=== PATIENT | female | born 1950 | race Caucasian/White ===

== ENCOUNTER 2016-06-28 13:06 | Day surgery (SDC) | payer MEDICARE, OTHER ==
[~2016-06-28 13:06] MED LIST: CIPROFLOXACIN HCL 500 MG TABLET PO PRN
[2016-06-28] MEDS ORDERED: LIDOCAINE HCL 10 APPL CARTRIDGE TP ONE (14:15)
[2016-06-28 15:10] LABS: Urine Bilirubin Negative (NEGATIVE); Urine Ketone Negative (NEGATIVE); Urine Nitrite Negative (NEGATIVE); Urine Protein Negative (NEGATIVE); Urine Specific Gravity 1.015 SP.GR. (1.005-1.010); Urine Urobilinogen Normal (NORMAL)
[2016-06-28 15:20] LABS: Urine Appearance Clear; Urine Bacteria None Seen; Urine Blood 10 /ul (NEGATIVE); Urine Color Yellow; Urine RBC 0-5 /hpf (0-5); Urine WBC None Seen /hpf (0-5)
[2016-06-28 16:57] VITALS: BP 108/62
== END 2016-06-28 13:07 | disposition home or self-care (01) ==
LOC: AMB 13:06
PROVIDERS: ATTEND Urology
PROC: 3E1K88X Irrigation of Genitourinary Tract using Irrigating Substance, Via Natural or Artificial Opening Endoscopic, Diagnostic (ICD-10-PCS; 2016-06-28)
PROC: 0TJB8ZZ Inspection of Bladder, Via Natural or Artificial Opening Endoscopic (ICD-10-PCS; principal; 2016-06-28 13:50)
DX: R31.9 Hematuria, unspecified (principal); R31.29 Other microscopic hematuria; Z68.1 Body mass index [BMI] 19.9 or less, adult

== ENCOUNTER 2016-08-15 10:50 | Emergency (ER) | payer MEDICARE, OTHER ==
[2016-08-15 11:03] LABS: Hematocrit 47.3 % (37.0-47.0); Hemoglobin 14.9 gm/dL (12.5-16.0); Mean Cell Volume 86.6 fl (78-100); Mean Corpuscular Hemoglobin 27.3 pg (27-31); Mean Corpuscular Hgb Conc 31.5 g/dl (32-36); Mean Platelet Volume 8.9 fl (6.0-9.5); Neutrophil # 4.4 K/mm3 (1.3-6.0); Neutrophil % 62.5 % (42-75.0); Platelet Count 378 K/mm3 (150-450); Red Blood Count 5.46 M/mm3 (4.2-5.4); Red Cell Distribution Width 13.3 % (11.5-14.0); White Blood Count 7.1 K/mm3 (4.0-10.5)
[2016-08-15 11:06] LABS: Prothrombin Time (Patient) 12.6 Seconds (9.4-11.4)
[2016-08-15 11:07] LABS: INR 1.21 INR (0.90-1.10)
--- NOTE | 2016-08-15 11:17 | ERNOTE ---
Neuro HPI ER Record Date of Service: 08/15/16 Presenting Symptoms: weakness, numbness, facial droop, difficulty walking Time Seen by Provider: 08/15/16 10:54 Source: patient Exam Limitations: no limitations Immunizations: IMMUNIZATION HX Immunizations Up to Date Yes History of Influenza Vaccine Yes Hx Pneumococcal Vaccination No Allergies/Adverse Reactions: Allergies Allergy/AdvReac Type Severity Reaction Status Date / Time atorvastatin calcium Allergy Severe Other Verified 05/26/16 14:58 [From Lipitor] ceftriaxone sodium Allergy Mild rash Verified 05/26/16 14:58 [From Rocephin] latex Allergy Mild Hives Verified 06/28/16 13:40 hydrocodone bitartrate Allergy Unknown Verified 06/26/16 14:51 [From Vicodin] simvastatin [From Zocor] AdvReac Severe Nausea Verified 05/26/16 14:58 Home Medications: HOME MEDICATIONS Aspirin [Aspirin EC] 81 mg PO DAILY 08/22/15 [Last Taken Unknown] Tobramycin/0.25 Normal Saline [Andrea 300MG/5ML Solution For Inhalation] 5 ml IH Q60D 08/22/15 [Last Taken Unknown] L.acidoph & Paracasei,B.lactis [Probiotic] 1 each PO DAILY #30 capsule 05/26/16 [Last Taken Unknown] Albuterol Sulfate [Proair Hfa] 1 - 2 puff IH Q4H PRN 06/26/16 [Last Taken Unknown] Azithromycin [Zithromax] 500 mg PO MOWEFR 06/26/16 [Last Taken Unknown] Calcium Carbonate/Vitamin D3 [Calcium 500 + Vit D 200 Tablet] 1 each PO BID [Last Taken Unknown] Levetiracetam [Keppra] 250 mg PO DAILY 06/26/16 [Last Taken Unknown] Meloxicam [Mobic] 7.5 mg PO BID 06/26/16 [Last Taken Unknown] Multivit with Calcium,Iron,Min [Women's Daily Formula] 1 each PO DAILY 06/26/16 [Last Taken Unknown] Zolpidem Tartrate [Ambien Cr] 12.5 mg PO HS PRN 06/26/16 [Last Taken Unknown] - History of Present Illness Narrative: 66-year-old female presented to outpatient clinic today for follow-up. While in outpatient clinic she complained of weakness and left-sided facial numbness and chest pain. Patient transferred to ED via nurse. Patient arrived alert and oriented 4 slight facial droop on left side. Patient stated that the right side of her face numb yesterday at 530 pm, ( 18 hours ago) but that has since gone away patient. She also stated she had nausea vomiting and diarrhea yesterday. Date (Duration): 08/15/16 Onset: other - 18 hours ago Severity: mild - Character of Deficits New weakness: Present: LLE, facial (lt) Review of Systems - Review of Systems Constitutional: Present: See HPI, recent illness, weakness. Absent: fever, chills, diaphoresis, decreased activity level EYE: Present: no symptoms reported ENT: Present: no symptoms reported Respiratory: Present: no symptoms reported Cardiology: Present: no symptoms reported Gastrointestinal/Abdominal: Present: See HPI, nausea, diarrhea. Absent: constipation Genitourinary: Present: no symptoms reported Musculoskeletal: Present: See HPI Skin: Present: no symptoms reported Neurological: Present: See HPI, headache - upon arrival to ed, weakness, numbness - left side of face, tingling - lips Endocrine: Present: no symptoms reported Hematologic/Lymphatic: Present: no symptoms reported Psych: Present: no symptoms reported - Patient's Past Medical History Patient History - Medical: Anxiety, Depression, Fibromyalgia, Headache, Osteoarthritis, Seizures Patient History - Cardiac/Respiratory: Asthma, Hyperlipidemia Patient History - Cancer: Lung Patient History - Surgical Procedures: Colonoscopy, EGD, Hysterectomy, Other Patient History - Other: Chronic/Prophylactic ABX, Chronic Steroid Therapy - Family History Mother Family History - Medical: No pertinent hx Family History - Cardiac/Respiratory: CVA/Stroke Family History - Cancer: No pertinent family hx Father Family History - Medical: No pertinent hx Family History - Cardiac/Respiratory: Other Family History - Cancer: No pertinent family hx - Social History Living Situations: home Abuse History: No History of abuse Psych History: Hx of Anxiety, Hx of Depression Alcohol Use: none Drug Use: none - Immunizations Immunizations Up to Date: Yes Hx Pneumococcal Vaccination: No History of Influenza Vaccine: Yes Physical Exam - Physical Exam General Appearance: Present: wd/wn Eye Exam: Normal inspection: bilateral, PERRL: bilateral Ears, Nose, Throat: Present: normal ENT inspection Neck: Present: normal inspection Respiratory: Present: no respiratory distress, normal breath sounds, chest tenderness Cardiovascular/Chest: Present: regular rate, rhythm, normal peripheral pulses Gastrointestinal/Abdominal: Present: normal bowel sounds, nondistended Extremity Exam: Present: normal inspection, no edema, decreased range of motion - has right shoulder pain that is ongoing and chronic Neurological Exam: Present: alert, oriented, normal mood/affect, facial droop - smile uneven. left side droop, motor weakness - left hand & leg weaknes. Absent : disoriented to person, disoriented to time, disoriented to place, disoriented to situation Skin Exam: Present: normal color, warm/dry. Absent: diaphoresis, cyanosis Lymphatic Exam: Present: no adenopathy Jairo Coma Scale - Assess Eye Opening: Spontaneous Motor: Obeys Commands Verbal: Oriented - Total Coma Scale Total: 15 Initial Stroke Assessment - Date/Time of assessment Stroke Scale Date: 08/15/16 Stroke Scale Time: 11:00 - NIH Stroke Scale Level of Consciousness: Alert LOC Questions (Year and Age): Answers both correctly LOC Commands (open/close eyes/fist): Performs both correctly Lateral Gaze Paresis: None Visual Field Loss: No visual loss Facial Palsy: Minor paralysis Right Arm Motor (10 sec hold): No drift Left Arm Motor (10 sec hold): No drift Right Leg Motor (5 sec hold): No drift Left Leg Motor (5 sec hold): Drift, effort made Limb Ataxia (finger/nose heel/shore): Absent Sensory Loss (pinprick arms/legs/face): No sensory loss Language Aphasia (description/naming/reading): No aphasia; normal Dysarthria (speech clarity): Normal articulation Neglect Inattention (visual/tactile/auditory/spatial/person): No neglect Initial Stroke Scale Score:: 3 - Stroke Risk Assessment Stroke Risk Assessment Level: 1-4 Mild Impairment - 3 Stroke Inclusion/Exclusion Cri - B Exclusion (Must answwer No to meet): yes - Exclusion Questions: Major symptoms rapidly improving: Yes Seizure at onset of stroke: No SBP>185; DBP>110 at time treatment is to begin: No Patient received Heparin or Coumadin within 48 hours: No Patient has elevated PTT or Protime/INR: No Stroke, head injury, major surgery, serious trauma in 3 mon.: No Previous intracranial hemmorhage: No Recent MA: No Known AV malformation or aneurysm: No Blood glucose <50mg/dl or >400mg/dl: No NIHSS Score <4 or >22 performed by physician: Yes ED Progress - Results and Orders Patient's Lab Results:: I have reviewed the patient's lab results. - Vital Signs Patient's Vital Signs:: I have reviewed the patient's vital signs. - EKG EKG: NSR EKG read: Interp. by me EKG Comments: also viewed by Dr Lerner. No acute changes. - X-Ray X-Ray #1 X-Ray: chest Interpretation: Reviewed by me X-ray Comments: Findings: The lungs demonstrate no focal consolidation or acute abnormality. Again identified is diffuse parenchymal scarring and hyperinflation compatible with COPD. There is no pleural effusion or pneumothorax. Cardiac silhouette and pulmonary vasculature are normal. The osseous structures are within normal limits for age. IMPRESSION: No acute cardiopulmonary process detected Electronically signed by Derrick Arias M.D.. - CT/Ultrasound CT/Ultrasound Narrative: Findings: There is no acute intracranial hemorrhage, midline shift or mass effect detected. No hydrocephalus. Cisterns are unremarkable. Mild atrophy Calvarium is intact. Left maxillary sinus disease reidentified. Mastoid air cells are well pneumatized. Remainder of the sinuses are clear. Impression: No acute intracranial process detected. If concern persists consider MRI. Findings were relayed to the emergency room at 11:06 AM 08/15/2016 Electronically signed by Derrick Arias M.D.. - Progress/Reassessment Progress:: Improved Progress Note-Subjective: 08/15/16 14:32 denies any numbness or tingling at this time. Plan - Plan Plan: Dr. Rdz notified and agrees for patient to have MRI after being discharged. She will follow up with him for results. Departure Clinical Impression: TIA (transient ischemic attack) Qualifiers: Transient cerebral ischemia type: unspecified Qualified Code(s): G45.9 - Transient cerebral ischemic attack, unspecified - Departure Disposition: Home Follow Up Needed Condition: Stable Instructions: Transient Ischemic Attack, [id number] Additional Instructions: Go to out patient MRI after discharge. Follow up with your primary care physician. Return to ER if symptoms return. Continue home medications as directed. Referrals: Elisabeth Henry MD [Primary Care Provider] -
[2016-08-15 11:18] LABS: ALT 10 U/L (19-67); Albumin * 3.5 gm/dl (3.4-5.0); Alkaline Phosphatase * 91 U/L (50-170); Anion Gap 15.1 mmol/L (6.8-13.8); BUN/Creatinine Ratio 12.9 (9.0-21.6); Bilirubin, Total 0.2 mg/dL (0.0-1.1); Blood Urea Nitrogen 12 mg/dL (3-23); Ca. Corrected For Albumin 9.6 mg/dL (8.4-10.2); Calcium * 9.5 mg/dL (7.9-10.9); Carbon Dioxide 26.7 mmol/L (24-32.6); Chloride 106 mmol/L (97-106); Glucose * 106 mg/dL (70-110); Potassium 4.8 mmol/L (3.4-4.6); Sodium 143 mmol/L (132-142); Total Protein 8.4 gm/dL (6.2-8.2); Troponin I Less than 0.017 ng/ml (0.00-0.10)
[2016-08-15] MEDS ORDERED: LIDOCAINE HCL 20 ML UDC PO ONE (11:18)
[2016-08-15] MEDS ORDERED: MAG HYDROX/ALUMINUM HYD/SIMETH 30 ML UDC PO ONE (11:18)
[2016-08-15] MEDS ORDERED: SUCRALFATE 1 G/10 ML UDC PO ONE (11:18)
[2016-08-15 11:29] LABS: AST 9 U/L (0-48)
[2016-08-15] MEDS ORDERED: NORMAL SALINE 1,000 ML IV ONE (11:50)
--- OUTSIDE RECORDS SUMMARY | 2016-08-15 12:00 | XMS REPORT | Continuity of Care Document ---
:1950 Author Organization [facility] ([facility]) Address [address] [place] [address] Phone [phone] Care Team Providers Name Role Phone Terri Henryheather Primary Care Provider [phone] Source Comments This disclosure is being made pursuant to the Care Everywhere program, applicable federal and state laws, and may not contain all informaitonavailable regarding this patient.[facility] ([facility]) Active Allergies and Adverse Reactions Allergen Noted Date Severity Reactions Comments Adhesive Tape 05/10/2009 Desquamation,Pruritus Ceftriaxone 01/04/2009 High Nausea & Vomiting ROCEPHIN Flaxseed Oil 05/13/2012 Urticaria (Hives),Pruritus,Rash Latex 05/22/2011 Urticaria (Hives) Current Medications Prescription Sig. Disp. Refills Start Date End Date Status Nebulizers Kit Used for 1 Each 11 05/22/2011 Active administration of inhaled antibiotic and bronchodilator medications. Indications: bronchiectasis multivitamin tablet Take 1 Tab by mouth Active daily. Nebulizer & Michelle-LC nebulizer 1 Each 1 05/27/2013 Active Compressor For Neb Indications: for elizabeth admin of neb antibiotics inhalational spacing Use with all meter 1 Device 0 07/21/2013 Active (AEROCHAMBER) device dose inhalers. Indications: BRONCHIECTASIS LORazepam 0.5 mg Take 0.5 mg by mouth Active tablet at bedtime pyridoxine (VITAMIN Take 100 mg by mouth Active B-6) 100 mg tablet daily cyanocobalamin Take 500 mcg by Active (VITAMIN B-12) 500 mouth daily mcg tablet aspirin (ASPIR-LOW) Take 81 mg by mouth Active 81 mg EC tablet daily melatonin 10 mg Take 20 mg by mouth Active tablet at bedtime gabapentin 100 mg Take 100 mg by mouth Active capsule 3 times daily. albuterol (VENTOLIN Use 2 Puffs by 8 g 11 05/22/2016 Active HFA) 90 inhalation every 6 mcg/Actuation hours as needed. inhaler albuterol 2.5 mg/3 Use 3 mL (2.5 mg 3 mL 05/22/2016 Active mL inhalation total) by inhalation solution 4 times daily as needed. tobramycin in 0.225 Use 5 mL (300 mg 300 mL 6 05/22/2016 Active % NaCl (SARA) 60 total) by inhalation mg/mL nebulizer 2 times daily. Take solution every other month azithromycin 500 mg Take 1 tablet (500 16 tablet 05/22/2016 Active tablet mg total) by mouth 3 times weekly. 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 Overview: Mucoid pseudomonas colonization, with periodic exacerbation of bronchiectasis Jaw pain 11/11/2012 Cervical spondylosis with myelopathy 11/02/2011 Mycobacterium avium complex 11/08/2009 Other general symptoms(780.99) 01/02/2007 Osteoarthrosis, unspecified whether generalized or localized, unspecified site Bronchiectasis without acute exacerbation 05/27/2001 Cough 05/27/2001 Most Recent Encounters Date Type Specialty Providers Description 07/18/2016 Office Visit Urology Ashwini Godinez Subj: Lawson Freeman MD Canceled 05/22/2016 Office Visit Med Pulmonary Bernardo Bunch Dx: Grecia Mathias MD aeruginosa colonization (Primary Dx) 05/22/2016 Hospital Encounter Respiratory Therapy Default, Other Dx: Cough Alanna Chavez MD Immunizations Name Dates Previously Given Next Due Influenza, PF 05/22/2011,05/16/2010,05/10/2009,03/10 Influenza, quadrivalent 04/23/2016 Influenza, quadrivalent PF 04/26/2015,03/29/2015,02/23/2014,03/10 Influenza, unspecified 03/21/2015,03/09/2014,03/09/2012,03/10,03/09/2006,02/07/2003,05/27/20,03/19/2000,06/09/1994 Novel Influenza H1N1 05/10/2009 Pneumococcal Conjugate, PCV13 (Prevnar 06/29/2014 13) Pneumococcal Polysaccharide, PPSV23 04/06/2008 (Pneumovax 23) Pneumococcal, unspecified 02/07/2003,06/09/1993 Td, adult unspecified 06/09/1995 Social History Tobacco Use Types Packs/Day Years Used Date Never Smoker Smokeless Tobacco: Never Used Tobacco Cessation:Counseling Given: Yes Comments: Alcohol Use Drinks/Week oz/Week Comments No Last Filed Vital Signs Vital Sign Reading Time Taken Blood Pressure 133/67 05/22/2016 10:39 AM END PACKER Pulse 99 05/22/2016 10:39 AM END PACKER Temperature 36.9 C (98.4 F) 05/22/2016 10:39 AM END PACKER Respiratory Rate 24 05/22/2016 10:39 AM END PACKER Height 1.67 m (5' 5.75") 05/22/2016 10:39 AM END PACKER Weight 56.8 kg (125 lb 3.5 oz) 05/22/2016 10:39 AM END PACKER Body Mass Index 20.37 05/22/2016 10:39 AM END PACKER Oxygen Saturation 95% 05/22/2016 10:39 AM END PACKER Plan of Care Date Type Specialty Providers Description 11/20/2016 Appointment Med Pulmonary Bernardo Bunch MD Subj: Appointment [address] Scheduled [place] [phone] (Fax) Health Maintenance Due Date Last Done Comments Hepatitis B Vaccine (1 of 3 1950 - Primary Series) Tdap Vaccine 02/23/1960 Lipid Disorder Screening 1967 Mammogram 1989 Colonoscopy 1999 Td Vaccine 06/09/2005 06/09/1995 Zoster Vaccine 2009 Osteoporosis Screening (DXA 2014 Bone Density) Pneumococcal Vaccine (2 of 2 06/29/2015 06/29/2014, - PPSV23) 04/06/2008 HCV Screening Completed 06/15/2001 Influenza Vaccine: Seasonal Completed 04/23/2016, Additional history exists 04/26/2015, 03/29/2015 Results from Last 3 Months PULMONARY FUNCTION TEST (PFT) (05/22/2016 9:40 AM) Component Value Range FVC Predicted 3.31 0.05-9.99 Liters FVC 1.24 0 - 12 Liters FVC %Predicted 37 0-300 % FEV1 Predicted 2.53 0.05-9.99 Liters FEV1 0.70 0 - 12 Liters FEV1% Predicted 28 0-300 % FEV1/FVC Predicted 77 1-99 % FEV1/FVC 57 0 - 12 % FEF 25-75% Predicted 2.14 0-12 L/sec FEF 25-75% 0.44 0-12 L/sec FEF 25-75% %Pre Predicted 21 0-300 % PEF Predicted 6.13 0-18 L/sec PEF Pre BD 1.12 0-18 L/sec PEF % Pre Predicted 18 0-300 % PIF PRE BD 1.86 0-18 L/sec MVV Predicted 101 0-300 L/min VC PREDICTED 3.31 0.05-9.99 Liters TLC Predicted 5.18 0.05-11.99 Liters RV Predicted 2.04 0.05-9.99 Liters RV/TLC Predicted 39 0-300 % FRC PL Predicted 3.17 0.05-9.99 Liters DLCO Predicted 21.5 0.05-99.99 mL/mmHg/min DLCO ADJ Predicted 21.5 1-2 mL/mmHg/min PI MAX Predicted 70 cmH2O
[2016-08-15 14:08] LABS: Urine Bilirubin Negative (NEGATIVE); Urine Blood 25 /ul (NEGATIVE); Urine Ketone Negative (NEGATIVE); Urine Nitrite Negative (NEGATIVE); Urine Protein Negative (NEGATIVE); Urine Specific Gravity >=1.030 SP.GR. (1.005-1.010); Urine Urobilinogen Normal (NORMAL); Urine pH 5.5 pH (5.0-7.0)
[2016-08-15] MEDS ORDERED: ACETAMINOPHEN 325 MG TABLET PO ONE (14:14)
[2016-08-15 14:16] LABS: Urine Appearance Clear; Urine Bacteria 2+; Urine Color Yellow; Urine Mucus TRACE; Urine RBC 0-5 /hpf (0-5)
[2016-08-15] MEDS ORDERED: ACETAMINOPHEN 325 MG TABLET ONE (14:24)
[2016-08-15 14:31] VITALS: BP 123/69
== END 2016-08-15 14:39 | disposition home or self-care (01) ==
LOC: ER 10:50
DX: G45.9 Transient cerebral ischemic attack, unspecified (principal); Z85.118 Personal history of other malignant neoplasm of bronchus and lung